=== PATIENT | female | born 1960 | race Caucasian/White ===

== ENCOUNTER 2019-03-15 12:17 | Inpatient (IN) | payer SELFPAY ==
[~2019-03-15] VITALS: Ht 167.6 cm; Wt 89.7 kg
[2019-03-15] MEDS ORDERED: IBUP-1114 PO (12:23)
[2019-03-15] MEDS ORDERED: LABETALOL HCL 100 MG/20 ML VIAL IV STA (12:44)
[2019-03-15 13:17] LABS: BASO % 0.1 % (0.0-1.0); EOS % 0.3 % (0.0-3.0); HEMATOCRIT 49.9 % (36.0-47.0); HEMOGLOBIN 16.4 g/dl (12.0-15.5); LYMPH # 0.8 10^3/uL (1.5-5.0); LYMPH % 10.6 % (24.0-44.0); MEAN CORPUSCULAR HEMOGLOBIN 28.7 pg (27.0-33.0); MEAN CORPUSCULAR HGB CONC 32.9 g/dl (32.0-36.5); MEAN CORPUSCULAR VOLUME 87.4 fl (80.0-96.0); MONO # 0.5 10^3/uL (0.0-0.8); MONO % 6.1 % (0.0-5.0); NEUTROPHILS # 6.2 10^3/uL (1.5-8.5); NEUTROPHILS % 82.5 % (36.0-66.0); PLATELET COUNT, AUTOMATED 263 10^3/uL (150-450); RED BLOOD COUNT 5.71 10^6/uL (4.00-5.40); WHITE BLOOD COUNT 7.6 10^3/uL (4.0-10.0)
[2019-03-15 13:53] LABS: ALBUMIN 4.3 GM/DL (3.2-5.2); ALT/SGPT 42 U/L (12-78); BILIRUBIN,TOTAL 0.9 MG/DL (0.2-1.0); BLOOD UREA NITROGEN 13 MG/DL (7-18); CALCIUM LEVEL 9.6 MG/DL (8.5-10.1); CARBON DIOXIDE LEVEL 26 MEQ/L (21-32); CHLORIDE LEVEL 106 MEQ/L (98-107); FREE THYROXINE INDEX 4.2 % (1.3-4.8); GLOMERULAR FILTRATION RATE > 60.0 (>51); GLUCOSE, FASTING 122 MG/DL (70-100); POTASSIUM SERUM 3.9 MEQ/L (3.5-5.1); SODIUM LEVEL 140 MEQ/L (136-145); T UPTAKE 34 % (30-39); THYROXINE (T4) 12.4 UG/DL (4.5-12.0); TOTAL PROTEIN 8.4 GM/DL (6.4-8.2)
[2019-03-15] MEDS ORDERED: CHLORTHALIDONE 25 MG TAB PO ONE (14:00)
--- NOTE | 2019-03-15 14:02 | ECGEPIP ---
[facility] - ED Test Date: 2019-03-15 Pat Name: GEORGE ARREAGA Department: Room: - Gender: Female Ring Spinner: SAPNA : 1960 Requested By: Shannon May Order Number: [id number] Reading MD: Shannon May Measurements Intervals [place] Rate: 104 P: 28 IN: 193 QRS: -5 QRSD: 104 T: 61 QT: 340 QTc: 448 Interpretive Statements SINUS TACHYCARDIA LEFT VENTRICULAR HYPERTROPHY AND ST-T CHANGE POSSIBLE LATERAL MYOCARDIAL INFARCTION, OF INDETERMINATE AGE NO OLD FOR COMPARISON Electronically Signed on 03-15-2019 14:02:15 EST by Shannon May
--- NOTE | 2019-03-15 14:36 | REP ---
Clinical: Headache . Comparison: None . Findings: Encephalomalacia/low density changes involving the right parieto-occipital region suggest infarction of indeterminate age including chronic and possible subacute components. Correlation with physical examination is recommended. No intracranial hemorrhage. No obvious mass effect. No extra-axial hemorrhage. Calvarium is intact. Impression: Low density changes involving the right parieto-occipital region suggesting chronic and possibly subacute areas of infarction. Correlation is required. No evidence for hemorrhage, or mass effect. Electronically Signed by Jack Prince MD 03/15/2019 02:27 P
--- NOTE | 2019-03-15 17:09 | REPVR ---
PROCEDURE INFORMATION: Exam: MR Head Without Contrast Exam date and time: 03/15/2019 4:09 PM Age: 58 years old Clinical history: Other: Patient states tunnel vision 2days ago that has since subsided. F/u CT on pacs; Additional info: Vision change/hypertension/abnormalct TECHNIQUE: Imaging protocol: MR of the head without contrast. COMPARISON: CT Head without contrast 03/15/2019 2:14 PM FINDINGS: Brain: Mild chronic microvascular ischemic changes. Multiple acute infarcts involving the right occipital lobe. The acute infarcts involve the entire right occipital lobe. Ventricles: Normal. No ventriculomegaly. Bones/joints: Unremarkable. Soft tissues: Unremarkable. Sinuses: Normal as visualized. No acute sinusitis. Mastoid air cells: Normal as visualized. No mastoid effusion. Orbits: Unremarkable. IMPRESSION: Multiple acute infarcts involving the right occipital lobe in the distribution of right posterior cerebral artery. The acute infarcts almost entirely involve the right occipital lobe. Electronically signed by: Ronak Stewart On 03/15/2019 17:09:21 PM
--- NOTE | 2019-03-15 17:14 | REPVR ---
PROCEDURE INFORMATION: Exam: MR Angiogram Head Without Contrast, Arteries Exam date and time: 03/15/2019 4:09 PM Age: 58 years old Clinical history: Other: Patient states tunnel vision 2days ago that has since subsided. F/u CT on pacs; Additional info: Vision change/hypertension/abnormalct TECHNIQUE: Imaging protocol: MR angiogram head without contrast. Exam focused on the arteries. 3D rendering: MIP reconstructed images were created and reviewed. COMPARISON: CT Head without contrast 03/15/2019 2:14 PM FINDINGS: Right internal carotid artery: Unremarkable. Intracranial segment is patent with no significant stenosis. No aneurysm. Right anterior cerebral artery: Unremarkable. No occlusion or significant stenosis. No aneurysm. Right middle cerebral artery: Unremarkable. No occlusion or significant stenosis. No aneurysm. Right posterior cerebral artery: There is discontinuation of the right posterior cerebral artery beyond P1 segment. Right vertebral artery: Unremarkable. No occlusion or significant stenosis. No aneurysm. Left internal carotid artery: Unremarkable. Intracranial segment is patent with no significant stenosis. No aneurysm. Left anterior cerebral artery: Unremarkable. No occlusion or significant stenosis. No aneurysm. Left middle cerebral artery: Unremarkable. No occlusion or significant stenosis. No aneurysm. Left posterior cerebral artery: Multifocal moderate to severe stenosis of the left posterior cerebral artery. Left vertebral artery: Unremarkable. No occlusion or significant stenosis. No aneurysm. Basilar artery: Unremarkable. No occlusion or significant stenosis. No aneurysm. IMPRESSION: Discontinuation of the right posterior cerebral artery beyond P1 segment, likely occluded. Multifocal moderate to severe stenosis of the left posterior cerebral artery. THIS REPORT CONTAINS FINDINGS THAT MAY BE CRITICAL TO PATIENT CARE. The findings were verbally communicated via telephone conference with JERRI DAVIS at 5:14 PM EST on 03/15/2019. The findings were acknowledged and understood. Electronically signed by: Ronak Stewart On 03/15/2019 17:14:07 PM
[2019-03-15] MEDS ORDERED: IBUP200T45 PO (17:16)
[2019-03-15 18:03] LABS: INR 1.08; PROTHROMBIN TIME 13.7 SECONDS (11.8-14.0)
[2019-03-15] MEDS ORDERED: niCARdipine IV 40 MG in IV 1 EA IV SCH (18:24)
[2019-03-15] MEDS ORDERED: LISINOPRIL 20 MG TAB PO ONE (19:45)
[2019-03-15 19:53] LABS: INR 1.07; PROTHROMBIN TIME 13.6 SECONDS (11.8-14.0)
[2019-03-15 20:00] LABS: HEMOGLOBIN A1c 5.8 %
[2019-03-15 20:07] VITALS: BP 182/100
[2019-03-15] MEDS: ATORVASTATIN 20 MG TAB PO SCH (21:03)
[2019-03-15] MEDS: ASPIRIN 325 MG TAB PO SCH (21:04)
[2019-03-16] VITALS (10 sets, daily range): BP systolic 143–198; BP diastolic 78–104
[2019-03-16] MEDS: amLODIPine 5 MG TAB PO SCH ×2 (00:40→20:07)
[2019-03-16 05:45] LABS: HEMATOCRIT 51.4 % (36.0-47.0); HEMOGLOBIN 16.7 g/dl (12.0-15.5); MEAN CORPUSCULAR HEMOGLOBIN 28.3 pg (27.0-33.0); MEAN CORPUSCULAR HGB CONC 32.5 g/dl (32.0-36.5); MEAN CORPUSCULAR VOLUME 87.1 fl (80.0-96.0); PLATELET COUNT, AUTOMATED 310 10^3/uL (150-450); WHITE BLOOD COUNT 9.2 10^3/uL (4.0-10.0)
[2019-03-16 06:12] LABS: BLOOD UREA NITROGEN 12 MG/DL (7-18); CALCIUM LEVEL 9.5 MG/DL (8.5-10.1); CARBON DIOXIDE LEVEL 27 MEQ/L (21-32); CHLORIDE LEVEL 101 MEQ/L (98-107); CHOLESTEROL LEVEL 257 MG/DL (<200); CHOLESTEROL RISK RATIO 5.586 (<5); CREATININE FOR GFR 0.99 MG/DL (0.55-1.30); GLOMERULAR FILTRATION RATE > 60.0 (>51); GLUCOSE, FASTING 126 MG/DL (70-100); HDL CHOLESTEROL 46 MG/DL (>40); LDL CHOLESTEROL 182 MG/DL (<100); MAGNESIUM LEVEL 2.1 MG/DL (1.8-2.4); NON-HDL-C 211 MG/DL; POTASSIUM SERUM 3.3 MEQ/L (3.5-5.1); SODIUM LEVEL 137 MEQ/L (136-145); TRIGLYCERIDES LEVEL 146 MG/DL (<150)
[2019-03-16] MEDS: LISINOPRIL 10 MG TAB PO SCH ×2 (06:28→08:53)
[2019-03-16] MEDS ORDERED: POTASSIUM CHLORIDE 10 MEQ SR TABLET PO ONE (06:30)
[2019-03-16] MEDS: ASPIRIN 325 MG TAB PO SCH (08:54)
--- NOTE | 2019-03-16 11:21 | HPE ---
DATE OF ADMISSION: 03/15/2019 CHIEF COMPLAINT: Headache. HISTORY OF PRESENT ILLNESS: This is a 58-year-old female who has not seen a medical provider in the last 25 years, presenting to the emergency room (ER) for blurry vision and headaches for the last 2 days. Patient is accompanied by her sister, daughter, and granddaughter. She states that she has not seen a provider for the last 25 years and is not the best historian. She complains for the last 2 days that she has noticed blurry vision in both eyes. She states that the vision gets a little bit better with squinting but not entirely. She also notes that she has right-sided headaches that she describes as dull in nature and localized to the right side. She is unable to tell me if it is a tension-like headache that wraps around her head, stabbing pain behind the right eye, or any pains radiating from the neck up. She denies having any muscle weakness, lightheadedness or dizziness. She denies having any chest pain, shortness of breath, cough, nausea, vomiting, or diarrhea. She does admit to having some abdominal discomfort prior to coming to the ER but states that is possibly due to the fact that she did not eat yet. She denies any muscle aches, worsening arthritis, or change in mood. She denies having any rashes or any lymphadenopathy as well. She has no other complaints at this time. She does state that when she was 25 years ago, she might have had gestational diabetes and hypertension. She was advised to followup with a primary care provider but did not see anyone, for she does not like to see them. PAST MEDICAL HISTORY: 1. Acid reflux, on home medication. 2. Ibuprofen as needed. ALLERGIES: No known drug allergies. PAST SURGICAL HISTORY: None. FAMILY HISTORY: Reviewed and pertinent for diabetes, cardiac history in her mother and father. SOCIAL HISTORY: Patient lives in [place]. Denies any tobacco use, alcohol use, or illicit drug use. Code states DO NOT RESUSCITATE/DO NOT INTUBATE. REVIEW OF SYSTEMS: Ten systems reviewed and negative other than in the history of present illness (HPI). PHYSICAL EXAMINATION: VITAL SIGNS: Temperature 98.0, pulse 81, respirations 162/108, mean arterial pressure (MAP) of 126, pulse oximetry 96% on room air. GENERAL: This is a very pleasant 58-year-old female who does not appear in any acute distress, sitting up in the bed, awake, alert, and oriented, speaking in complete sentences in no acute distress. HEENT: Moist mucous membranes. No jugular venous distention (JVD). No carotid bruits appreciated. CARDIOVASCULAR: S1, S2 sounds regular. No audible murmurs, rubs, or gallops. RESPIRATORY: Clear to auscultate bilaterally. No audible wheezing, rhonchus, or rales. ABDOMEN: Positive bowel sounds in all four quadrants. Soft, nontender. No hepatomegaly or splenomegaly. EXTREMITIES: No lower extremity clubbing, cyanosis, or lower extremity edema. NEUROLOGIC: Spontaneously moving all four extremities. Horizontal nystagmus is appreciated on the right side. Flattening of the nasolabial fold on the left side. Unable to maintain a smile on the left side. No tongue deviation noted. Sensation intact in the upper and lower extremities as well as the face. Unless stated, the remaining cranial nerve II-XII are grossly intact. Physiologic appropriate. LABORATORY DATA: Hematology: WBC 7.6, hemoglobin 16.4, hematocrit 49.9, pulse 263. Chemistry: Electrolytes are within normal limits. BUN and creatinine normal at 13 and 1.00, respectively. Fasting glucose 122. Liver profile within normal limits except alkaline phosphatase is 126 and total protein 8.4. TSH is 3.370. Coagulation: INR 1.08, blood gas carboxyhemoglobin at 1.4. IMAGING: Head CT: Low-density changes involving the right parieto-occipital lobe, suggesting chronic and possible subacute areas of infarct. Correlation is required. No evidence of hemorrhage or mass effect. Brain MRI: Discontinuation of the right posterior cerebral artery beyond P1 segment, likely included. Multifocal moderate to severe stenosis of the left posterior cerebral artery. Brain MRI: Multiple acute infarcts involving the right occipital lobe in distributing of the right posterior cerebral artery. The acute infarcts mostly entirely involve the right occipital lobe. EKG was read as a rate of 105, TN interval of 193. It was read as sinus tachycardia with left ventricular hypertrophy with possible ST changes. ASSESSMENT AND PLAN: This is a 58-year-old female with no pertinent past medical history, who is not seen a provider in the last 25 years, presenting for headache and blurry vision, presenting with acute cerebrovascular accident (CVA) of the right occipital lobe. PROBLEMS: 1. Acute CVA of the right occipital lobe. NIH score is 3. Dr. Craven is consulted, who will see the patient tomorrow. Recommendations include MRA of the neck, aspirin 325 mg daily, Lipitor 40 mg daily. Obtain lipid panel and A1c in the morning. Will put her on neurologic checks and vital checks every 2 hours. Nicardipine drip has been placed to maintain a systolic blood pressure less than 180, a diastolic blood pressure less than 100. Hold parameters have been placed if systolic blood pressure is less than 140, diastolic pressure less than 80, or heart rate less than 60, to stop infusion and to call the [facility] on nights. Will also obtain an echocardiogram to assess for an underlying rhythm to make sure she does not have any abnormal atrial rhythms. 2. Hypertensive emergency. Please refer to plan 1 with the nicardipine drip. 3. Elevated hemoglobin and hematocrit. There is no documented acute kidney injury (MANE). Her STOP-BANG score is low at 2 but will get the echocardiogram to assess underlying pulmonary function and will trend the complete blood count (CBC) to see if it resolves. Patient denies having any smoking history. 4. Diet. A 2-gram sodium diet. Not an aspiration risk. 5. Code status. DO NOT RESUSCITATE/DO NOT INTUBATE. Patient was given a medical order for life-sustaining treatment (MOLST) form to zacarias out officially, but she has stated multiple times to me that she is a DO NOT RESUSCITATE/DO NOT INTUBATE. Patient will be admitted to the progressive care unit (PCU) floor and placed on remote telemetry. Attending Attestation: I have personally evaluated and examined the patient. Discussed with residents/students regarding plan of care and agree with the above assessment and plan. MARGARITA
--- NOTE | 2019-03-16 11:51 | IPNPDOC ---
Date Seen The patient was seen on 03/16/19. Progress Note SUBJECTIVE: Patient seen and examined this morning. She states shes feeling very well and she would like to go home if possible. She has no complaints today. She denies having any headaches or lightheadedness. She does states she was unable to sleep for she cant sleep in hospital. She denies chest pain, shortness breath, nausea, vomiting, fevers, chills] OBJECTIVE PHYSICAL EXAMINATION: VITAL SIGNS: Please see below. GENERAL: Pleasant 58-year-old female laying in bed awake alert oriented speaking in complete sentences no acute distress HEENT: Moist mucous membranes no elevation in CVP CARDIOVASCULAR: S1 S2 regular no additional heart sounds appreciated. RESPIRATORY:[Clear to auscultation bilaterally. ABDOMINAL: Bowel sounds present abdomen soft and nontender EXTREMITIES: No clubbing cyanosis or edema NEUROLOGICAL: Spontaneously moves all 4 extremities Horizontal nystagmus ism appreciated bilateral. No facial deficits noted today. No tongue deviation noted. Sensation intact in upper, lower extremities bilaterally and face. Unless stated, the remaining cranial nerve II-XII are grossly intact. PSYCHOLOGICAL: Appropriate LABORATORY DATA, MICROBIOLOGY: Please see below. IMAGING STUDIES: 03/15/[address] Low density changes involving the right parieto-occipital region suggesting chronic and possibly subacute areas of infarction. Correlation is required. No evidence for hemorrhage, or mass effect. Brain MRI Discontinuation of the right posterior cerebral artery beyond P1 segment, likely occluded. Multifocal moderate to severe stenosis of the left posterior cerebral artery. Brain MRI Multiple acute infarcts involving the right occipital lobe in the distribution of right posterior cerebral artery. The acute infarcts almost entirely involve the right occipital lobe. ASSESSMENT AND PLAN: This is a -year-old [GENDER] with . PROBLEMS: Acute CVA of the right occipital lobe -NIH score is 3. Dr. Craven is consulted, -MRA of the neck pending -c/w aspirin 325 mg daily, Lipitor 40 mg daily. Will put her on neurologic checks and vital checks every 2 hours. Permissive hypertension for the next 24-48 hrs SBP<180, and DBP < 100. -Echocardiogram pending -repeat EKG today while not tachycardic, continue telemetry . Hypertensive emergency. Please refer to plan 1 Elevated hemoglobin and hematocrit. There is no documented MANE. -STOP-BANG score : 2 - Echocardiogram to assess underlying pulmonary function and will trend the complete blood count (CBC) to see if it resolves. - Patient denies having any smoking history. Prediabetes -A1c 5.8 -Recommendations is lifestyle modification Hyperlipidemia -will need to continue Lipitor 40 mg daily upon discharge Diet -2-gram sodium diet -Not an aspiration risk. Code status. DO NOT RESUSCITATE/DO NOT INTUBATE. DVT prophylaxis: Teds and Sequentials DISPOSITION: Echocardiogram, MRA of the neck, Repeat EKG, Dr. Craven consult, and BP control. Possible DC in 24-48 hours if medical stable ATTENDING NOTE I have personally evaluated and examined the patient. Discussed with residents/students regarding plan of care and agree with the above assessment and plan. VS, I&O, 24H, Fishbone Vital Signs/I&O Vital Signs Date Time Temp Pulse Resp B/P (MAP) Pulse Ox O2 Delivery O2 Flow Rate FiO2 03/16/19 10:34 97.3 83 18 170/100 (123) 100 Room Air I&O- Last 24 Hours up to 6 AM 03/16/19 06:00 Intake Total 600 ml Output Total 1050 ml Balance -450 ml Laboratory Data 24H LABS Laboratory Tests 2 03/15/19 13:03: Erythrocyte Sedimentation Rate 3 03/15/19 13:07: Immature Granulocyte % (Auto) 0.4, Neutrophils (%) (Auto) 82.5H, Lymphocytes (%) (Auto) 10.6L, Monocytes (%) (Auto) 6.1H, Eosinophils (%) (Auto) 0.3, Basophils (%) (Auto) 0.1, Neutrophils # (Auto) 6.2, Lymphocytes # (Auto) 0.8L, Monocytes # (Auto) 0.5, Eosinophils # (Auto) 0.0, Basophils # (Auto) 0.0, Nucleated Red Blood Cells % (auto) 0.0, Prothrombin Time 13.7, Prothromb Time International Ratio 1.08, Carboxyhemoglobin 1.4, Anion Gap 8, Glomerular Filtration Rate > 60.0, Calcium Level 9.6, Total Bilirubin 0.9, Aspartate Amino Transf (AST/SGOT) 23, Alanine Aminotransferase (ALT/SGPT) 42, Alkaline Phosphatase 126H, Total Protein 8.4H, Albumin 4.3, Albumin/Globulin Ratio 1.05, Thyroid Stimulating Hormone (TSH) 3.370, Free Thyroxine Index 4.2, Thyroxine (T4) 12.4H, Triiodothyronine (T3) Uptake 34 03/15/19 19:33: Prothrombin Time 13.6, Prothromb Time International Ratio 1.07, Estimated Mean Plasma Glucose 120H, Hemoglobin A1c 5.8 03/16/19 05:04: Nucleated Red Blood Cells % (auto) 0.0, Anion Gap 9, Glomerular Filtration Rate > 60.0, Calcium Level 9.5, Magnesium Level 2.1, Triglycerides Level 146, Total Cholesterol 257H, LDL Cholesterol 182H, Non-HDL Cholesterol (LDL + VLDL) 211, Total HDL Cholesterol 46, Cholesterol/HDL Ratio 5.586H CBC/BMP Laboratory Tests 03/15/19 13:07 03/16/19 05:04 MAGNOLIA MCCORMACK DO Mar 16, 2019 11:51 PEDRO CYR MD Mar 16, 2019 14:36
[2019-03-16] MEDS ORDERED: SLF 3 ML SYR IV PRN (12:00)
[2019-03-16] MEDS: SLF 3 ML SYR IV SCH ×2 (14:34→20:07)
--- NOTE | 2019-03-16 14:51 | ECHO ---
DATE OF PROCEDURE: 03/16/2019 DATE OF : 1960 AGE: 58 REFERRING PROVIDER: Dr. Remi Garcia PATIENT LOCATION: Room 3220 REASON FOR THE STUDY: CVA. 2D MEASUREMENTS: IVS: 1.3 cm LV: 5.3 cm LVPW: 1.2 cm LA: 3.7 cm Aorta: 3.2 cm IVC: 1.6 cm DOPPLER MEASUREMENTS: Peak velocity across the aortic valve: 1.4 meters per second Peak velocity across the LVOT: 1.2 meters per second Mitral E: 0.5, Mitral A: 1.0 with a ratio of 0.5. 2D COMMENTS: 1. Normal left ventricular size with mildly increased left ventricular wall thickness and a normal global left ventricular systolic function. The estimated left ventricular systolic ejection fraction is 60-65%. 2. Normal left atrium. Normal right atrium and right ventricle. 3. The atrial septum appeared to be normal without evidence of defect or shunt. 4. Normal aortic root. 5. Trace pericardial effusion. 6. Mildly calcified aortic valve, leaflet excursion appeared to be normal. The mitral valve and the tricuspid valve appeared to be normal. The pulmonic valve and proximal pulmonary artery branches were not well visualized. 7. The inferior vena cava was normal in size, central venous pressure is most likely normal. DOPPLER: Only trace mitral regurgitation detected. Abnormal relaxation pattern was noted across the mitral valve leaflets, as well as the mitral valve annulus consistent with features of grade 1 left ventricular diastolic dysfunction. IMPRESSION: 1. Normal global left ventricular systolic function with probably mild concentric left ventricular hypertrophy. There are some features of grade 1 left ventricular diastolic dysfunction manifested by abnormal relaxation. 2. Aortic valve sclerosis without stenosis or aortic regurgitation. 3. Trace mitral regurgitation. 4. Trace pericardial effusion noted, no evidence of cardiac tamponade.
--- NOTE | 2019-03-16 17:41 | CR ---
DATE OF CONSULTATION: 03/16/2019 REFERRING PHYSICIAN: Remi Garcia REASON FOR CONSULTATION: Stroke. HISTORY OF PRESENT ILLNESS: Monique Armstrong is a 58-year-old woman who does not take any medications and has not seen a medical provider in 25 years and came to the emergency department due to headache and blurred vision for 2 days. The patient was brought in by her sister, daughter, and granddaughter. The patient had headache and blurred vision on both sides, worse on left side, for last 2 days. The patient denies any numbness, weakness of arms and legs, dysphagia, dysarthria, diplopia, falls, or loss of consciousness. She states that she feels much better and feels close to her baseline. She states that her vision is better today. She does not drive. Her daughter takes her to grocery store to do her shopping. PAST MEDICAL HISTORY: Acid reflux. HOME MEDICATIONS: Ibuprofen as needed ALLERGIES: None. PAST SURGICAL HISTORY: None. FAMILY HISTORY: Pertinent for diabetes, and parents had heart disease. REVIEW OF SYSTEMS: All systems were reviewed and found to be noncontributory except as mentioned in the history of present illness. SOCIAL HISTORY: The patient lives alone. She denies smoking, alcohol, or illicit drugs. She has status of DO NOT RESUSCITATE and DO NOT INTUBATE. PHYSICAL EXAMINATION: Blood pressure 156/78, and it was 230/120 in the emergency department at the time of admission. Temperature 97.2, pulse 71, respiratory rate 18, 97% saturation on room air. HEART: Regular rate and rhythm. LUNGS: Clear to auscultation. ABDOMEN: Soft, nontender, nondistended. No pedal edema. No musculoskeletal abnormalities. No rash. No signs of meningeal irritation. The patient is awake, alert, oriented to place, person, and time. Normal speech, comprehension, and repetition. Extraocular intact. No facial weakness. Tongue and uvula are midline. No nystagmus. She has left-sided visual field deficit. Recent and distant memory is intact. Strength 5/5 in all four extremities. Deep tendon flexes 2+ throughout. Normal sensation. Gait is normal. DIAGNOSTIC STUDIES: MRI scan of brain was reviewed and showed a medium to large right occipital ischemic stroke. MRA brain showed occlusion of right posterior cerebral artery (ACID TENDER) with moderate to severe stenosis of left ACID TENDER. Telemetry so far showed sinus rhythm. ASSESSMENT: 1. Right occipital stroke causing left visual field deficit. 2. Right posterior cerebral artery occlusion and moderate to severe left ACID TENDER stenosis. 3. Uncontrolled hypertension. 4. Dyslipidemia. 5. Medical noncompliance. PLAN: 1. MRA carotid and vertebral arteries. 2. Echocardiogram and continue telemetry monitoring. 3. Aspirin 325 mg by mouth daily and Lipitor 40 mg p.o. daily. 4. Keep systolic blood pressure below 180 and diastolic blood pressure below 100. The patient has been started on chlorthalidone, lisinopril, and Norvasc. She was initially maintained on nicardipine intravenous drip. 5. Blood tests to rule out coagulopathy and vasculopathy. 6. Follow with our office in 2-3 weeks after hospital discharge. She should also have a primary care physician for long-term health care. The patient has not seen a medical provider in 25 years and has not taken any medications.
[2019-03-16] MEDS: ATORVASTATIN 20 MG TAB PO SCH (20:07)
--- NOTE | 2019-03-17 01:01 | ECGEPIP ---
[facility] Test Date: 2019-03-16 Pat Name: GEORGE ARREAGA Department: Room: [place] [address] Gender: Female Cook Fry: MARIETTA : 1960 Requested By: MAGNOLIA Ruiz Order Number: [id number] Reading MD: Fernando Oquendo Measurements Intervals [place] Rate: 83 P: 22 MS: 175 QRS: 7 QRSD: 98 T: 69 QT: 379 QTc: 446 Interpretive Statements SINUS RHYTHM NONSPECIFIC T-WAVE ABNORMALITY LEFT VENTRICULAR HYPERTROPHY MINIMAL ST ELEVATION NOTED CONSISTENT WITH EARLY REPOLARIZATION PRIOR TRACING ON 03/15/2019 AT 12:54 P.M.. HEART RATE IS NOW SLOWER AND THERE IS NOW ALSO BETTER R-WAVE PROGRESSION Electronically Signed on 03-17-2019 1:01:33 EST by Fernando Oquendo
[2019-03-17 02:00] VITALS: BP 156/80
[2019-03-17 04:00] VITALS: BP 172/90
[2019-03-17 04:36] LABS: HEMATOCRIT 46.6 % (36.0-47.0); HEMOGLOBIN 15.6 g/dl (12.0-15.5); MEAN CORPUSCULAR HGB CONC 33.5 g/dl (32.0-36.5); MEAN CORPUSCULAR VOLUME 86.6 fl (80.0-96.0); PLATELET COUNT, AUTOMATED 309 10^3/uL (150-450); RED BLOOD COUNT 5.38 10^6/uL (4.00-5.40); WHITE BLOOD COUNT 8.1 10^3/uL (4.0-10.0)
[2019-03-17 05:07] LABS: CALCIUM LEVEL 9.1 MG/DL (8.5-10.1); CREATININE FOR GFR 1.09 MG/DL (0.55-1.30); GLOMERULAR FILTRATION RATE 54.7 (>51)
[2019-03-17] MEDS: SLF 3 ML SYR IV SCH (05:12)
[2019-03-17 06:00] VITALS: BP 168/92
[2019-03-17] MEDS ORDERED: LISI-538 PO (07:04)
[2019-03-17] MEDS ORDERED: ASPI-1 PO (07:04)
[2019-03-17] MEDS ORDERED: ATOR1TAB21 PO (07:04)
[2019-03-17 08:00] VITALS: BP 158/108
[2019-03-17 08:35] VITALS: BP 158/108
[2019-03-17] MEDS: ASPIRIN 325 MG TAB PO SCH (08:35)
[2019-03-17] MEDS: LISINOPRIL 10 MG TAB PO SCH (08:35)
[2019-03-17] MEDS ORDERED: PROHANCE 279.3MG/ML 15ML VIAL (A9576) As Ordered ONE (09:18)
[2019-03-17] MEDS ORDERED: ATOR40TA75 PO (10:42)
--- NOTE | 2019-03-17 13:15 | DS.PDOC ---
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 2. Hypertensive emergency 3. Prediabetes 4. Elevated hemoglobin and hematocrit 5. Hyperlipidemia PROCEDURES PERFORMED DURING STAY: None. CONSULTANTS: Dr. Craven, neurology HOSPITAL COURSE: The patient was admitted to [facility] with telemetry acute CVA of the right occipital lobes. We allowed for permissive hypertension for 48 hours to maintain a SBP less than 180 and a DBP<100. She was started on aspirin 325 daily and Lipitor 40 mg daily. EKG was sinus tachycardia with no obvious LVH or RVH or atrial enlargement. Echocardiogram was performed which is relatively benign and Pulmonary artery pressures were not able to be obtained. Her elevated hemoglobin and hematocrit was monitored and down trended with a low of 15.6 on the day of discharge. I advised her to follow-up with primary care outpatient for her elevated hemoglobin and hematocrit to see if his underlying cause. Remaining of the initial lab workup did show an A1c of 5.8, AND hyperlipidemia. Blood pressure medications were added and she was discharged on 20 mg of lisinopril might need to be up titrated outpatient. The day of discharge she was medically stable to go home and she had no complaints. Advised patient that primary care provider will need to follow-up with her hypercoagulable workup, She was medically stable to be discharged. DISCHARGE MEDICATIONS: Please see below. ALLERGIES: Please see below. SUBJECTIVE: She has no complaints today and would like to go home. She denies chest pain, shortness, breath, nausea, vomiting, fevers, chills OBJECTIVE: PHYSICAL EXAMINATION: VITAL SIGNS: Please see below. GENERAL: Pleasant 58-year-old female laying in bed awake alert oriented speaking in complete sentences no acute distress HEENT: Moist mucous membranes no elevation in CVP CARDIOVASCULAR: S1 S2 regular no additional heart sounds appreciated. RESPIRATORY:[Clear to auscultation bilaterally. ABDOMINAL: Bowel sounds present abdomen soft and nontender EXTREMITIES: No clubbing cyanosis or edema NEUROLOGICAL: Spontaneously moves all 4 extremities Horizontal nystagmus ism appreciated bilateral. No facial deficits noted today. No tongue deviation noted. Sensation intact in upper, lower extremities bilaterally and face. Unless stated, the remaining cranial nerve II-XII are grossly intact. PSYCHOLOGICAL: Appropriate LABORATORY DATA, MICROBIOLOGY: Please see below. IMAGING STUDIES: 03/15/[address] Low density changes involving the right parieto-occipital region suggesting chronic and possibly subacute areas of infarction. Correlation is required. No evidence for hemorrhage, or mass effect. Brain MRI Discontinuation of the right posterior cerebral artery beyond P1 segment, likely occluded. Multifocal moderate to severe stenosis of the left posterior cerebral artery. Brain MRI Multiple acute infarcts involving the right occipital lobe in the distribution of right posterior cerebral artery. The acute infarcts almost entirely involve the right occipital lobe. Cardiac artery MRA official report pending on the day of discharge ECHOCARDIOGRAM: 03/16/2019 - Dr. Oquendo 1. Normal global left ventricular systolic function with probably mild concentric left ventricular hypertrophy. There are some features of grade 1 left ventricular diastolic dysfunction manifested by abnormal relaxation. 2. Aortic valve sclerosis without stenosis or aortic regurgitation. 3. Trace mitral regurgitation. 4. Trace pericardial effusion noted, no evidence of cardiac tamponade. 5. The pulmonic valve and proximal pulmonary artery branches were not well visualized. DVT prophylaxis ordered: Yes DISPOSITION: Home DISCHARGE CONDITION: Stable PROGNOSIS: Fair FOLLOW UP: 1. Establish care with primary care provider in 3-4 weeks 2. Primary care provider will need to follow-up with her hypercoagulable workup, ACTIVITY: As prior to admission DIET: 2 g sodium diet TIME SPENT ON DISCHARGE: 40 minutes Vital Signs/I&Os Vital Signs Date Time Temp Pulse Resp B/P (MAP) Pulse Ox O2 Delivery O2 Flow Rate FiO2 03/17/19 08:35 158/108 03/17/19 08:00 97.0 78 18 97 Room Air I&O- Last 24 Hours up to 6 AM 03/17/19 06:00 Intake Total 1320 ml Output Total 1200 ml Balance 120 ml Laboratory Data Labs 24H Laboratory Tests 2 03/17/19 04:05: Nucleated Red Blood Cells % (auto) 0.0, Anion Gap 6L, Glomerular Filtration Rate 54.7, Calcium Level 9.1, Magnesium Level 2.0 03/17/19 07:14: CBC/BMP Laboratory Tests 03/17/19 04:05 Discharge Medications Scheduled Aspirin (Aspirin) 325 Mg Tablet, 325 MG PO DAILY Atorvastatin Calcium (Atorvastatin Calcium) 40 Mg Tablet, 1 TAB PO QHS Lisinopril (Lisinopril) 20 Mg Tablet, 1 TAB PO DAILY Scheduled PRN Ibuprofen (Ibu-200) 200 Mg Tablet, 400 MG PO Q6H PRN for PAIN, (Reported) Allergies Coded Allergies: No Known Drug Allergies (Verified Allergy, Unknown, 03/15/19) ATTENDING NOTE I have personally evaluated and examined the patient. Discussed with residents and student regarding plan of care and agree with the above assessment and discharge plan. MAGNOLIA MCCORMACK DO Mar 17, 2019 13:15 PERDO CYR MD Mar 17, 2019 13:50
[2019-03-23 00:07] LABS: HOMOCYST(E)INE SERUM 14.6 umol/L (0.0-15.0)
== END 2019-03-17 14:22 | disposition home or self-care (01) | DRG 45 ==
LOC: M ED 12:17 → M ED INP 12:18 → M PCU 20:07 → OBSVTOIN 03-16 15:03
PROVIDERS: ADMIT Student in an Organized Health Care Education/Training Program; ATTEND Student in an Organized Health Care Education/Training Program
DX: I63.531 Cerebral infarction due to unspecified occlusion or stenosis of right posterior cerebral artery (principal); I16.1 Hypertensive emergency; K21.9 Gastro-esophageal reflux disease without esophagitis; Z66 Do not resuscitate; R73.03 Prediabetes; E78.5 Hyperlipidemia, unspecified; Z91.19 Patient's noncompliance with other medical treatment and regimen

== ENCOUNTER 2019-04-13 16:01 | Emergency (ER) | payer MEDICAID, SELFPAY ==
[~2019-04-13] VITALS: Ht 170.2 cm; Wt 89.3 kg
[~2019-04-13 16:01] MED LIST: ASPI-1 PO; ATOR1TAB21 PO; ATOR40TA75 PO; IBUP-1114 PO; IBUP200T45 PO; LISI-538 PO
[2019-04-13 19:25] LABS: BASO % 0.4 % (0.0-1.0); EOS # 0.1 10^3/uL (0.0-0.5); HEMATOCRIT 47.9 % (36.0-47.0); HEMOGLOBIN 15.6 g/dl (12.0-15.5); LYMPH # 1.7 10^3/uL (1.5-5.0); LYMPH % 21.6 % (24.0-44.0); MEAN CORPUSCULAR HEMOGLOBIN 28.8 pg (27.0-33.0); MEAN CORPUSCULAR HGB CONC 32.6 g/dl (32.0-36.5); MEAN CORPUSCULAR VOLUME 88.5 fl (80.0-96.0); MONO # 0.7 10^3/uL (0.0-0.8); MONO % 8.3 % (0.0-5.0); NEUTROPHILS # 5.4 10^3/uL (1.5-8.5); NEUTROPHILS % 68.4 % (36.0-66.0); PLATELET COUNT, AUTOMATED 272 10^3/uL (150-450); RED BLOOD COUNT 5.41 10^6/uL (4.00-5.40); WHITE BLOOD COUNT 7.9 10^3/uL (4.0-10.0)
[2019-04-13 19:38] LABS: INR 1.06; PARTIAL THROMBOPLASTIN TIME 25.7 SECONDS (25.0-38.4); PROTHROMBIN TIME 13.5 SECONDS (11.8-14.0)
--- NOTE | 2019-04-13 19:44 | REP ---
Clinical: Hypertension. Comparison: None . Technique: PA and lateral. Findings: The mediastinum and cardiac silhouette are normal. The lung [place] are clear and without acute consolidation, effusion, or pneumothorax. The skeletal structures are intact and normal. Impression: 1. No acute cardiopulmonary process. Electronically Signed by Jack Prince MD 04/13/2019 07:35 P
--- NOTE | 2019-04-13 19:54 | REPVR ---
PROCEDURE INFORMATION: Exam: CT Head Without Contrast Exam date and time: 04/13/2019 7:17 PM Age: 58 years old Clinical indication: Other: Hypertensive urgency; Additional info: Hypertensive urgency, recent CVA TECHNIQUE: Imaging protocol: Computed tomography of the head without contrast. Radiation optimization: All CT scans at this facility use at least one of these dose optimization techniques: automated exposure control; mA and/or kV adjustment per patient size (includes targeted exams where dose is matched to clinical indication); or iterative reconstruction. COMPARISON: CT Head without contrast 03/15/2019 2:14 PM FINDINGS: Brain: Continued interval evolution of previously visualized right DESIGN SALES CONSULTANT ischemic infarct. No acute intracranial hemorrhage or midline shift. Decreased attenuation of the supratentorial white matter is likely secondary to chronic microvascular ischemia. Ventricles: No hydrocephalus. Bones/joints: Unremarkable. No acute fracture. Sinuses: Visualized sinuses are unremarkable. No fluid levels. Mastoid air cells: Visualized mastoid air cells are well aerated. Soft tissues: Unremarkable. IMPRESSION: 1. Interval evolution of previously visualized right DESIGN SALES CONSULTANT infarction. 2. No acute intracranial hemorrhage. Electronically signed by: Wolfgang Khalil On 04/13/2019 19:53:48 PM
[2019-04-13 19:59] LABS: CK-MB VALUE MASS < 1.0 NG/ML (<3.6); CPK CREATINE PHOSPHOKINASE 92 U/L (26-192); MB/CK RELATIVE INDEX 1.09 (< OR =4); TROPONIN I < 0.02 NG/ML (< 0.10)
[2019-04-13] MEDS ORDERED: LABETALOL 100 MG TAB PO ONE (20:15)
[2019-04-13 20:26] VITALS: BP 182/116
[2019-04-13] MEDS ORDERED: CARVedilol 12.5 MG TAB PO ONE (22:00)
[2019-04-13] MEDS ORDERED: FUROSEMIDE 40 MG/4 ML VIAL (J1940) IV ONE (22:00)
[2019-04-13] MEDS ORDERED: lisinopriL 20 MG TAB PO ONE (22:00)
[2019-04-13 23:20] VITALS: BP 148/96
[2019-04-13] MEDS ORDERED: CHLO125TA PO (23:32)
[2019-04-13] MEDS ORDERED: SPIR-10 PO (23:32)
[2019-04-13] MEDS ORDERED: CARV12.5 PO (23:32)
[2019-04-13] MEDS ORDERED: LISI-538 AD (23:32)
[2019-04-13] MEDS ORDERED: ATOR40TA75 PO (23:45)
--- NOTE | 2019-04-15 15:17 | ECGEPIP ---
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
--- NOTE | 2019-04-16 08:43 | ED PDOC ---
Post-Departure Follow-Up dr stefanie tarango faxed formal report of ct head for fu Jaya Go MD Apr 16, 2019 08:43
== END 2019-04-13 23:54 | disposition home or self-care (01) ==
LOC: M ED 16:01
DX: I16.0 Hypertensive urgency (principal); Z76.0 Encounter for issue of repeat prescription; I10 Essential (primary) hypertension; E78.5 Hyperlipidemia, unspecified; Z79.899 Other long term (current) drug therapy; Z79.82 Long term (current) use of aspirin; F17.220 Nicotine dependence, chewing tobacco, uncomplicated
CPT/HCPCS: 70450; 71046; 80047; 81001; 82550; 82553; 85025; 85610; 85730; 93005; 93041; 96374; 99284; J1940

== ENCOUNTER → 2019-05-08 | Outpatient (CLI) | payer MEDICAID ==
[~2019-05-08] MED LIST changes: +CARV12.5 PO; +CHLO125TA PO; +LISI-538 AD; +SPIR-10 PO
--- NOTE | 2019-05-08 08:38 | REP ---
Renal vascular Doppler ultrasound: Right Kidney: Renal length 10.8 no cm. Extraparenchymal renal artery. Peak renal artery flow velocity 91 cm/ sec Peak aortic velocity: The 89 cm/sec Renal/aortic ratio: 1.02. The Intraparenchymal renal arteries. Resistive index: upper pole 0.61 mid pole 0.71 lower pole 0.61 Acceleration time: upper pole 0.033 mid pole 0.042 lower pole 0.039 Left kidney: Renal length 11.8 cm. Extraparenchymal renal artery: Peak renal artery flow velocity: 92 cm/sec. Peak aortic velocity: 89 cm/sec Renal/aortic ratio: 1.03 Intraparenchymal renal arteries: Resistive index: Upper pole 0.65 mid pole 0.59 lower pole 0.63 Acceleration time: Upper pole 0.044 mid pole 0.025 lower pole 0.036 Impression: There is no evidence of renal artery stenosis by Doppler ultrasound. Bilateral renal ultrasound: The right kidney measures 10.5 0.6 x 5.0 cm. The left kidney measures 11.8 x 4.7 x 5.2 cm. The kidneys are normal size. Renal cortical echogenicity is normal bilaterally. There is no hydronephrosis on the right on the left. There are no solid or cystic renal masses on the right on the left. No renal calculi are identified on the right on the left. Impression: Essentially negative bilateral renal ultrasound. Electronically Signed by Butch Max MD 05/08/2019 08:29 A
== END ==
LOC: M RAD 06:42
PROVIDERS: ATTEND Internal Medicine Cardiovascular Disease
DX: I10 Essential (primary) hypertension (principal)

== ENCOUNTER → 2019-08-28 | Outpatient (CLI) | payer OTHER ==
[2019-08-28 12:22] LABS: CALCIUM LEVEL 9.4 MG/DL (8.5-10.1); CREATININE FOR GFR 2.17 MG/DL (0.55-1.30); GLOMERULAR FILTRATION RATE 24.7 (>51); PHOSPHORUS LEVEL 4.4 MG/DL (2.5-4.9); POTASSIUM SERUM 4.6 MEQ/L (3.5-5.1)
== END ==
LOC: M LAB 11:14
PROVIDERS: ATTEND Internal Medicine Cardiovascular Disease
DX: I11.9 Hypertensive heart disease without heart failure (principal); N19 Unspecified kidney failure

== ENCOUNTER → 2019-09-11 | Outpatient (CLI) | payer OTHER ==
[2019-09-11 13:57] LABS: CALCIUM LEVEL 9.3 MG/DL (8.5-10.1); CREATININE FOR GFR 1.6 MG/DL (0.55-1.30); GLOMERULAR FILTRATION RATE 35.1 (>51); PHOSPHORUS LEVEL 3.4 MG/DL (2.5-4.9); POTASSIUM SERUM 4.3 MEQ/L (3.5-5.1)
[2019-09-12 09:14] LABS: BILIRUBIN,TOTAL 0.8 MG/DL (0.2-1.0); TOTAL PROTEIN 7.5 GM/DL (6.4-8.2)
== END ==
LOC: M LAB 12:18
PROVIDERS: ATTEND Internal Medicine Cardiovascular Disease
DX: I11.9 Hypertensive heart disease without heart failure (principal); N19 Unspecified kidney failure

== ENCOUNTER → 2021-01-14 | Outpatient (REF) | payer OTHER ==
[~2021-01-14] MED LIST changes: -LISI-538 AD; -LISI-538 PO; +LISI20TA33 AD; +LISI20TA33 PO
== END ==
LOC: M LAB REF 17:31
PROVIDERS: ATTEND Internal Medicine Nephrology
DX: N18.32 Chronic kidney disease, stage 3b (principal)

== ENCOUNTER → 2023-07-27 | Outpatient (CLI) | payer OTHER ==
[~2023-07-27] MED LIST changes: -IBUP200T45 PO; +IBUP200T46 PO
[2023-07-27 11:58] LABS: ALBUMIN 3.9 G/DL (3.2-5.2); BILIRUBIN,DIRECT 0.2 MG/DL (<0.4); BILIRUBIN,TOTAL 0.7 MG/DL (0.3-1.2); HDL CHOLESTEROL 50.1 MG/DL (>40); LDL CHOLESTEROL 168.1 MG/DL (<100); NON-HDL-C 200.9 MG/DL; TOTAL PROTEIN 7.8 G/DL (5.7-8.2)
== END ==
LOC: M PLALAB 08:28
PROVIDERS: ATTEND Physician Assistant
DX: E78.00 Pure hypercholesterolemia, unspecified (principal)

== ENCOUNTER → 2023-08-17 | Outpatient (CLI) | payer OTHER | LOC: M PLAIMG 13:45 | PROVIDERS: ATTEND Physician Assistant | DX: I08.0 Rheumatic disorders of both mitral and aortic valves (principal) ==